=== PATIENT | male | born 1955 | race Caucasian/White ===

== ENCOUNTER 2021-05-09 18:17 | Emergency (ER) | payer MEDICARE, MEDICAID ==
[2021-05-09] MEDS ORDERED: Benzocaine 10% Dental Gel 9 GM Tube MUCMEM ONE (19:11)
[2021-05-09] MEDS ORDERED: Lidocaine 1% 5 ML VIAL INJECT ONE (19:11)
[2021-05-09] MEDS ORDERED: Bupivacaine 0.25% 10 ML SDV INJECT ONE (19:11)
== END 2021-05-09 19:59 | disposition home or self-care (01) ==
LOC: JP.ED 18:17
DX: K04.7 Periapical abscess without sinus (principal); K02.9 Dental caries, unspecified; Z88.0 Allergy status to penicillin; Z88.1 Allergy status to other antibiotic agents; Z79.899 Other long term (current) drug therapy
CPT/HCPCS: 64400; 99282-25; 99283; A9270-GY; J3490

== ENCOUNTER 2021-05-11 12:21 | Emergency (ER) | payer MEDICARE, MEDICAID ==
[2021-05-11] MEDS ORDERED: Iopamidol 612 MG/ML 100 ML Bottle IV PRN (13:40)
[2021-05-11] MEDS ORDERED: Sodium Chloride 0.9% 100 ML IV SCH (13:45)
[2021-05-11] MEDS ORDERED: Clindamycin Phosphate 600 MG in Sodium Chloride 0.9% 100 ML IV SCH (13:45)
[2021-05-11] MEDS ORDERED: Sodium Chloride 0.9% 1,000 ML IV SCH (14:00)
[2021-05-11] MEDS ORDERED: cefTRIAXone 1 GM in Sodium Chloride 0.9% 50 ML IV ONE (15:20)
== END 2021-05-11 16:00 | disposition home or self-care (01) ==
LOC: JP.ED 12:21
DX: L03.211 Cellulitis of face (principal); I10 Essential (primary) hypertension; E78.00 Pure hypercholesterolemia, unspecified; J44.9 Chronic obstructive pulmonary disease, unspecified; Z79.899 Other long term (current) drug therapy; Z88.0 Allergy status to penicillin; Z88.8 Allergy status to other drugs, medicaments and biological substances
CPT/HCPCS: 36415; 70491; 80053; 83605; 84145; 85025; 86140; 96365; 99283; 99284-25; J3490; J7030; Q9967